=== PATIENT | male | born 1990 | race Two or more races ===

== ENCOUNTER 2024-05-24 21:07 | Emergency (ER) | payer OTHER ==
[~2024-05-24] VITALS: Ht 185.4 cm; Wt 70.5 kg
[2024-05-24 21:15] VITALS: BP 133/66; PULSE 80; RESP 16; TEMP 98.2
== END 2024-05-24 22:16 | disposition left against medical advice (07) ==
LOC: EMS 21:07
DX: R07.9 Chest pain, unspecified (principal); Z53.21 Procedure and treatment not carried out due to patient leaving prior to being seen by health care provider
CPT/HCPCS: 99281; Z7502